=== PATIENT | male | born 1965 | race Caucasian/White ===

== ENCOUNTER 2017-04-14 01:16 | Emergency (ER) | payer BC, OTHER ==
[~2017-04-14] VITALS: Ht 188 cm; Wt 127.0 kg
[2017-04-14 02:06] LABS: Basophils # (auto) 0 uL; CONDITION Y; Eosinophils # (auto) 0 uL; Eosinophils % (auto) 0.3 % (0.0-7.0); Hemoglobin 11.2 g/dL (13.5-17.5); Lymphocytes # (auto) 0.8 uL; Lymphocytes % (auto) 10.2 % (10.0-50.0); Mean Corpuscular Hemoglobin 28.7 pg (28.0-32.0); Mean Corpuscular Hgb Conc. 32.9 g/dL (32.0-36.0); Mean Corpuscular Volume 87.1 fL (80.0-100.0); Mean Platelet Volume 9.9 fL (7.4-10.4); Monocytes # (auto) 1.2 uL; Monocytes % (auto) 16.1 % (0.0-12.0); Neutrophils # (auto) 5.4 uL; Neutrophils % (auto) 73.4 % (37.0-80.0); Platelet Count (auto) 157 10^3/uL (140-450); Red Cell Distribution Width 17.3 % (11.6-16.0); White Blood Cell 7.4 10^3/uL (4.4-10.8)
[2017-04-14 02:24] LABS: Albumin 2.8 g/dL (3.4-5.0); BUN/Creatinine Ratio 5.9; Calcium 7.2 mg/dL (8.5-10.1); Magnesium 3.3 mg/dL (1.6-2.6); Potassium 4.7 mmol/L (3.5-5.1)
[2017-04-14 02:29] LABS: INR 0.95 (0.9-1.15); Partial Thromboplastin Time 30.3 sec (22.64-33.71); Prothrombin Time 10.3 sec (9.37-12.3)
[2017-04-14 02:31] LABS: Bilirubin, Total 0.4 mg/dL (0.2-1.0)
[2017-04-14 02:45] LABS: Temperature: 22.2 C (20.0-25.0)
[2017-04-14 06:20] VITALS: BP 161/64
== END 2017-04-14 07:05 | disposition home or self-care (01) ==
LOC: EDBD 01:16 → ER 01:16
DX: N18.6 End stage renal disease (principal); E11.22 Type 2 diabetes mellitus with diabetic chronic kidney disease; Z99.2 Dependence on renal dialysis; I50.9 Heart failure, unspecified; R53.1 Weakness
CPT/HCPCS: 36415; 71010; 80053; 83735; 83880; 84484; 85025; 85379; 85610; 85730; 93005